=== PATIENT | female | born 1975 | race Caucasian/White ===

== ENCOUNTER 2025-05-28 12:22 | Day surgery (SDC) | payer BC ==
[2025-05-28] VITALS (27 sets, daily range): BP systolic 107–160; BP diastolic 59–111
[~2025-05-28] VITALS: Ht 162.6 cm; Wt 75.5 kg
[~2025-05-28 12:22] MED LIST: ALBU90OI INH; Budeprion Xl300 MG PO; ESTRADIOL42.5 GM VAG; FLUO20 PO; PROGESTERONE200 M1 PO; RXCLIN PO; RXHYDACE PO; RXTRAM50 PO; TRAM50 PO; WEGOVY0.25 MG/0. SC
--- NOTE | 2025-05-28 13:13 | NUR ---
Discharge instructions reviewed with patient. Patient verbalizes understanding. Copy given to patient to take home. Lungs clear T/O to Auscultation. Patient States Post-Procedure ride home has been arranged. Pre-Op teaching done. Pt verbalizes understanding. PT W 2 PAIRS OF EARINNGS REMOVED AND WEDDING BAND THAT SHE REMOVED AND PLACED IN A DENTURE CUP WITH A PATIENT PARALEGAL SUPERVISOR THE LID. DENTURE CUP W JEWELRY PLACED IN PT'S BELONGING BAG UNDER THE BED.
--- NOTE | 2025-05-28 13:32 | NUR ---
05/28/25 1332 Evelyn Geiger CONFIRMED AND REVIEWED H&P, MEDCICATIONS, ALLERGIES, MEDICAL HISTORY, RESPIRATORY HISTORY, VITAL SIGNS, 3-LEAD EKG, CONSENTS, AND PHYSICIAN ORDERS. PATIENT CONFIRMS NPO STATUS AND AGREES WITH SCHEDULED PROCEDURE. MONITOR INTACT WITH CONTINUOUS PULSE OXIMETRY, CAPNOGRAPHY, 3-LEAD EKG, INTERMITTENT BP. SUPPLEMENTAL O2 TO BE TITRATED THROUGHOUT PROCEDURE TO MAINTAIN O2 SATURATION ABOVE 90%. PATIENT DETERMINED TO BE ASA APPROPRIATE FOR PROPOFOL SEDATION PRIOR TO START OF PROCEDURE BY . MALLAMPATI CLASS 1 AIRWAY: COMPLETE VISULATIZATION OF THE SOFT PALATE.
[2025-05-28] MEDS ORDERED: Midazolam HCl 1MG / ML 2ML Vial ONE ×2 (13:36→13:45)
[2025-05-28] MEDS ORDERED: FentaNYL Citrate 50 MCG/ML 2 ML Injection ONE (13:49)
--- NOTE | 2025-05-28 14:24 | NUR ---
REPORT RECEIVED FROM PAVITHRA MENDIOLA. VSS. PT ON RA. PT ABLE TO REPOSITION SELF IN BED. PT REQUESTING PO FLUIDS AND TOLERATING THEM WELL. PT DENIES PAIN, NAUSEA OR OTHER DISCOMFORTS.
--- NOTE | 2025-05-28 14:38 | NUR ---
Patient up to Ambulate independently. Gait steady. VSS AND CONSISTENT WITH PT BASELINE. PT HAS NO COMPLAINTS AND VERBALIZES READINESS TO GO HOME. Discharge instructions reviewed with patient and her spouse. Patient verbalizes understanding. Copy given to patient to take home. Patient States Post-Procedure ride home has been arranged. Discharged via wheelchair to private car for ride home. Pt belongings returned to pt.
== END 2025-05-28 14:40 | disposition home or self-care (01) ==
LOC: ORSCMMR 12:22 → ORD 13:30 → ORSCMMR 13:30 → ORD 05-29 12:30
PROVIDERS: Family Medicine
PROC: 0DBK8ZX Excision of Ascending Colon, Via Natural or Artificial Opening Endoscopic, Diagnostic (ICD-10-PCS; principal; 2025-05-28 13:30)
DX: Z12.11 Encounter for screening for malignant neoplasm of colon (principal); D12.2 Benign neoplasm of ascending colon; J45.909 Unspecified asthma, uncomplicated; F17.290 Nicotine dependence, other tobacco product, uncomplicated; Z79.899 Other long term (current) drug therapy
CPT/HCPCS: 88305; J2250; J2704; J3010; J7120